=== PATIENT | female | born 1990 | race Caucasian/White ===

== ENCOUNTER → 2020-02-15 19:21 | Outpatient (CLI) | payer BC, SELFPAY ==
[2020-02-15 19:53] LABS: Adenovirus,PCR Not Detected (NotDetected); Bordetella Pertussis Not Detected (NotDetected); Chlamydophila Pneumoniae, PCR Not Detected (NotDetected); Coronavirus 19, PCR Not Detected (NotDetected); Coronavirus 229E Not Detected (NotDetected); Coronavirus NL63 Not Detected (NotDetected); Coronavirus OC43 Not Detected (NotDetected); Coronovirus HKU1,PCR Not Detected (NotDetected); Human Metapneumovirus Not Detected (NotDetected); Influenza A, PCR Not Detected (NotDetected); Influenza AH1, 2009 Not Detected (NotDetected); Influenza AH1, PCR Not Detected (NotDetected); Influenza AH3,PCR Not Detected (NotDetected); Influenza B, PCR Not Detected (NotDetected); Mycoplasma Pneumoniae, PCR Not Detected (NotDetected); Parainfluenza 1, PCR Not Detected (NotDetected); Parainfluenza 2, PCR Not Detected (NotDetected); Parainfluenza 3, PCR Not Detected (NotDetected); Parainfluenza 4, PCR Not Detected (NotDetected); Respiratory Syncytial Virus Not Detected (NotDetected); Rhinovirus/Enterovirus Not Detected (NotDetected)
== END ==
PROVIDERS: PCP Nurse Practitioner; Visit Provider Nurse Practitioner Family
DX: Z03.818 Encounter for observation for suspected exposure to other biological agents ruled out (principal)
CPT/HCPCS: 87581; 87633; 87798

== ENCOUNTER → 2020-07-17 11:02 | Outpatient (CLI) | payer BC, SELFPAY | PROVIDERS: Visit Provider Nurse Practitioner Family | DX: Z20.822 Contact with and (suspected) exposure to COVID-19 (principal) | CPT/HCPCS: U0003 ==

== ENCOUNTER → 2020-11-29 19:53 | Outpatient (CLI) | payer BC, SELFPAY | PROVIDERS: Visit Provider Nurse Practitioner Family | DX: Z20.822 Contact with and (suspected) exposure to COVID-19 (principal); J02.9 Acute pharyngitis, unspecified | CPT/HCPCS: U0003 ==

== ENCOUNTER → 2020-12-19 20:21 | Outpatient (CLI) | payer BC, SELFPAY | PROVIDERS: Visit Provider Nurse Practitioner Family | DX: Z20.822 Contact with and (suspected) exposure to COVID-19 (principal); U07.1 COVID-19 | CPT/HCPCS: C9803; U0003; U0005 ==

== ENCOUNTER 2021-02-23 18:46 | Emergency (ER) | payer OTHER, BC, SELFPAY ==
[2021-02-23 19:15] VITALS: BP 114/74; PULSE 65; RESP 16; TEMP 36.6; O2SAT 98; BMI 23.3
[2021-02-23 19:22] LABS: UTC Strep Screen (Rapid) Positive (Negative)
--- NOTE | 2021-02-23 19:33 | HMH.EDUTC ---
[facility] – [place] Disposition Clinical Impression: Strep throat Disposition: Home, Self-Care Condition on Discharge: Good Instructions: Strep Throat, DI for Strep Throat Additional Instructions: Drink plenty of fluids. Take tylenol or ibuprofen for pain or fever. Take the medications as directed. Follow up with your regular doctor. GO TO THE ER FOR ANY WORSENING SYMPTOMS Throw your tooth brush away and get a new one. Prescriptions: Brompheniramine/Pseudoephed/Dm [Bromfed Dm Cough Syrup] 5 ml PO Q6HP PRN #240 ml PRN Reason: Cough Transmission Status: Pending to [facility] methylPREDNISolone [Medrol] 4 mg PO DIRECTED 6 Days #21 packet Transmission Status: Pending to [facility] Cefdinir [Omnicef 300mg Capsule] 300 mg PO BID #20 cap Transmission Status: Pending to [facility] Referrals: Jamie Vela MD [Primary Care Provider] - Forms: Work/School Release Time of Disposition: 20:16 Medical Decision Making - Medical Records Medical records reviewed: No: I reviewed the patient's medical records. - Hugh Inquiry Pt receiving controlled substance: No Vital Signs: 02/23/21 19:15 02/23/21 19:44 Temperature 97.9 F 97.9 F Temperature Source Oral Pulse Rate 65 Pulse Rate [Left] 65 Respiratory Rate 16 16 Blood Pressure 114/74 Blood Pressure [Right Arm] 114/74 Blood Pressure Mean [Right Arm] 87 02 Sat by Pulse Oximetry 98 - Lab Data Lab results reviewed: Yes: I reviewed the patient's lab results. Lab Results 02/23/21 19:21: Strep Scn Rapid Clinic Positive A [facility] – [place], [place] HPI - General Stated complaint: sore throat, cough, diarrhea, headache Time Seen by Provider: 02/23/21 19:33 Mode of Arrival: Ambulatory Source of Information: Patient Limitations: No Limitations Description of Symptoms (Recalled from Triage Doc. by RN): pt c/o a HERNANDEZ, fever, diarrhea, cough and sore throat. ongoing x1.5 wk HEENT Symptoms (Recalled from RN notes): Yes (HERNANDEZ and sore throat) Resp Symptoms (Recalled from RN notes): Yes (cough) Skin Symptoms (Recalled from RN notes): No MS Symptoms (Recalled from RN notes): No Functional Status (Recalled from RN notes): wnl - History of Present Illness Provider Complaint: She states that she has been feeling bad for the past 1.5 weeks. She c/o sore throat, fever, chills, head ache, and a cough. - Related Data Home Medications Medication Instructions Recorded Confirmed estradiol 0.1 mg/24 hr semiweekly 1 patch TRANSDERMA ONCE each 04/19/19 12/19/20 transdermal patch Previous Rx's Medication Instructions Recorded azithromycin 250 mg tablet 250 mg PO QDAY 5 Days #6 tab 12/19/20 Brompheniramine/Pseudoephed/Dm 5 ml PO Q6HP PRN #240 ml 02/23/21 [Bromfed Dm Cough Syrup] Cefdinir [Omnicef 300mg Capsule] 300 mg PO BID #20 cap 02/23/21 methylPREDNISolone [Medrol] 4 mg PO DIRECTED 6 Days #21 02/23/21 packet Allergies Allergy/AdvReac Type Severity Reaction Status Date / Time acetaminophen [From Percocet] Allergy hives, Verified 12/19/20 17:52 vomiting, shakes amoxicillin Allergy Hives Verified 12/19/20 17:52 meperidine [From Demerol] Allergy hives, Verified 12/19/20 17:52 vomiting, shakes morphine Allergy vomiting, Verified 12/19/20 17:52 head feels on fire naproxen Allergy mild hives Verified 12/19/20 17:52 oxycodone [From Percocet] Allergy hives, Verified 12/19/20 17:52 vomiting, shakes Penicillins Allergy hives Verified 12/19/20 17:52 - Worker's Comp Is this a Worker's Comp case?: No H History - Hepatitis A Screen Drug use history?: No High risk sexual behaviors?: No History of sexually transmitted infection?: No Currently employed?: No Childcare worker?: No Do you have indoor plumbing?: Yes Do you have electricity?: Yes Attestation statement:: This patient has been screened for Hepatitis A risk factors. I have reviewed the patient's p
[2021-02-23 19:44] VITALS: BP 114/74; PULSE 65; RESP 16; TEMP 36.6
== END 2021-02-23 20:33 | disposition home or self-care (01) ==
PROVIDERS: Emergency Provider Nurse Practitioner Family; PCP Family Medicine
DX: J02.0 Streptococcal pharyngitis (principal); F41.9 Anxiety disorder, unspecified; G43.709 Chronic migraine without aura, not intractable, without status migrainosus
CPT/HCPCS: 87880; 99202; G0463

== ENCOUNTER 2022-08-24 13:55 | Emergency (ER) | payer SELFPAY ==
[2022-08-24 13:56] VITALS: BP 132/91; PULSE 78; RESP 18; TEMP 36.8; O2SAT 100; BMI 21.6
--- NOTE | 2022-08-24 14:00 | HMH.EDGENADL ---
Discharge Plan Disposition Patient Disposition: Home, Self-Care Prescriptions Prescriptions: New clindamycin HCl 300 mg capsule 300 mg PO Q8H 7 Days Qty: 21 0RF sulfamethoxazole-trimethoprim [Bactrim DS] 800-160 mg tablet 1 tab PO BID 7 Days Qty: 14 0RF No Action estradiol 0.1 mg/24 hr patch semiweekly 1 patch TRANSDERMA ONCE Label Comments: APPLY 1 PATCH TOPICALLY TWICE A WEEK azithromycin 250 mg tablet 250 mg PO QDAY 5 Days Qty: 6 0RF Rx Instructions: ii tabs day one and i tab days 2-5 methylprednisolone 4 MG tablets,dose pack 4 mg PO DIRECTED 6 Days Qty: 21 0RF nbzxcctsaxqshkr-rhsjndqkj-WL 118 ML syrup 5 ml PO Q6HP PRN (Reason: Cough) Qty: 240 0RF cefdinir 300 MG capsule 300 mg PO BID Qty: 20 0RF Clinical Impressions Clinical Impression: Cat bite Instructions Patient Instructions: DI for Skin Abscess Discharge ED Provider: Jacky Liriano General Adult HPI General Chief complaint: Skin/Abscess/Foreign Body Stated complaint: AO 08/24 Right wrist cat bite Time Seen by Provider: 08/24/22 14:00 History of Present Illness HPI narrative: Patient is a 32-year-old female here after a cat bite to the right wrist. She states that she had a cat this been coming around her house for weeks and has been acting normally she was feeding the cat and tried to pick it up and it bit her on the wrist. She complains of pain over the radial aspect no significant soft tissue swelling no retained foreign bodies that she is aware of. Tetanus not clear in terms of when she had a last she thinks maybe 7 years ago. She is allergic to penicillin. This happened just prior to arrival. She states she is not worried about rabies as this cat has had normal behavior. Animal is also in custody with animal [employer]. Related Data Home Medications Medication Instructions Recorded Confirmed estradiol 0.1 mg/24 hr semiweekly 1 patch transdermal ONCE 04/19/19 12/19/20 transdermal patch Previous Rx's Medication Instructions Recorded azithromycin 250 mg tablet 250 mg PO QDAY sinusitis 5 days #6 12/19/20 tabs fceilpnicvdfxqz-lecxhucjcigknjm-AY 5 ml PO Q6HP PRN Cough #240 mL 02/23/21 2 mg-30 mg-10 mg/5 mL oral syrup cefdinir 300 mg capsule 300 mg PO BID #20 caps 02/23/21 methylprednisolone 4 mg tablets in 4 mg PO DIRECTED 6 days #21 02/23/21 a dose pack packets clindamycin HCl 300 mg capsule 300 mg PO Q8H 7 days #21 caps 08/24/22 sulfamethoxazole 800 1 tab PO BID 7 days #14 tabs 08/24/22 mg-trimethoprim 160 mg tablet (Bactrim DS) Allergies Allergy/AdvReac Type Severity Reaction Status Date / Time acetaminophen [From Percocet] Allergy hives, Verified 12/19/20 17:52 vomiting, shakes amoxicillin Allergy Hives Verified 12/19/20 17:52 meperidine [From Demerol] Allergy hives, Verified 12/19/20 17:52 vomiting, shakes morphine Allergy vomiting, Verified 12/19/20 17:52 head feels on fire naproxen Allergy mild hives Verified 12/19/20 17:52 oxycodone [From Percocet] Allergy hives, Verified 12/19/20 17:52 vomiting, shakes Penicillins Allergy hives Verified 12/19/20 17:52 PFSH PFSH Disclaimer: The information contained in this section may have been updated after the patient was seen, as this information can be updated by other users. Social History Smoking Status: Current every day smoker alcohol intake: current substance use type: denies use current occupational status: employed Travel in the last 8 weeks: None household members: family housing: house ROS Obtained: Yes All systems reviewed & no additional complaints except as documented Physical Exam General General appearance: alert Respiratory Respiratory exam: Present normal lung sounds bilaterally Cardiovascular Cardiovascular exam: Present regular rate Extremities Exam Extremities exam: Present other (Right wrist there is small punctate wo
--- NOTE | 2022-08-24 14:08 | XR_ITS ---
PROCEDURE INFORMATION: Exam: XR Right Wrist Exam date and time: 08/24/2022 2:09 PM Age: 32 years old Clinical indication: Injury or trauma; Other: Cat scratch; Bite; Wrist; Right; Additional info: Cat bite, eval for tooth fb TECHNIQUE: Imaging protocol: Radiologic exam of the right wrist. Views: 3 or more views. COMPARISON: No relevant prior studies available. FINDINGS: Bones/joints: Osseous structures are intact. No fracture or malalignment. Visualized joint surfaces are preserved. Soft tissues: Unremarkable. No radiopaque foreign body detected. IMPRESSION: Negative exam.
--- NOTE | 2022-08-24 14:11 | PC.NURSE ---
rad notified of xray order
--- NOTE | 2022-08-24 14:18 | PC.NURSE ---
tdap given left arm. lot- [id number] Exp- Jun 15 ; teaching sheet given exp 10/27/2020
[2022-08-24 14:31] VITALS: BP 132/91; PULSE 78; RESP 18; TEMP 36.8; O2SAT 100
--- NOTE | 2022-08-24 14:33 | PC.NURSE ---
pt refused pain medication during this visit. pt states she would take Ibuprofen when she left.
== END 2022-08-24 14:34 | disposition home or self-care (01) ==
PROVIDERS: Emergency Provider Student in an Organized Health Care Education/Training Program
DX: S61.551A Open bite of right wrist, initial encounter (principal); F17.200 Nicotine dependence, unspecified, uncomplicated; W55.01XA Bitten by cat, initial encounter
CPT/HCPCS: 73110; 99283; 99284

== ENCOUNTER 2023-03-24 19:40 | Emergency (ER) | payer OTHER, SELFPAY ==
[2023-03-24 19:42] VITALS: BP 122/81; PULSE 73; RESP 18; TEMP 36.9; O2SAT 99; BMI 22.6
--- NOTE | 2023-03-24 20:18 | HMH.EDGENADL ---
Discharge Plan Disposition Patient Disposition: Home, Self-Care Chief Complaint: Upper Respiratory Infection Prescriptions Prescriptions: No Action estradiol 0.1 mg/24 hr patch semiweekly 1 patch TRANSDERMA ONCE Patient Comments: APPLY 1 PATCH TOPICALLY TWICE A WEEK azithromycin 250 mg tablet 250 mg PO QDAY 5 Days Qty: 6 0RF Rx Instructions: ii tabs day one and i tab days 2-5 methylprednisolone 4 MG tablets,dose pack 4 mg PO DIRECTED 6 Days Qty: 21 0RF icppkntdqeihgdj-wotymykbb-ED 118 ML syrup 5 ml PO Q6HP PRN (Reason: Cough) Qty: 240 0RF cefdinir 300 MG capsule 300 mg PO BID Qty: 20 0RF clindamycin HCl 300 mg capsule 300 mg PO Q8H 7 Days Qty: 21 0RF sulfamethoxazole-trimethoprim [Bactrim DS] 800-160 mg tablet 1 tab PO BID 7 Days Qty: 14 0RF Referrals Follow up/Referrals: Jamie Vela MD [Primary Care Provider] - See instructions Activity Restrictions/Add. Instructions Additional Instructions/Restrictions: At this time it was felt you are safe to be discharged home. If new or worsening symptoms please do not hesitate to return the emergency department. If symptoms persist please follow-up with your family doctor as you are able. Clinical Impressions Clinical Impression: Viral respiratory infection Discharge ED Provider: Edgard Stephen General Adult HPI General Chief complaint: Upper Respiratory Infection Stated complaint: fever, sore throat, cough, runny nose, abd pain Time Seen by Provider: 03/24/23 19:47 Mode of Arrival: Ambulatory Source of Information: Patient Limitations: No Limitations Description of Symptoms (Recalled from ER Triage Doc. by RN): Patient reports sore throat, cough, runny nose for approximately 1 week. Patient states she has had a migraine for the last 6 days that has moderately improved today. History of Present Illness HPI narrative: Patient is a 32-year-old female with past medical history of previous migraines who presents emergency department for evaluation of multiple complaints. Patient has had symptoms of cough, sore throat, runny nose for a little over a week. She had a migraine that lasted for 6 days, bitemporal, moderate to severe in intensity which has largely resolved. Adequate p.o. intake. Due to persistent symptoms she presents here for continued evaluation. Related Data Home Medications Medication Instructions Recorded Confirmed estradiol 0.1 mg/24 hr semiweekly 1 patch transdermal ONCE 04/19/19 12/19/20 transdermal patch Previous Rx's Medication Instructions Recorded azithromycin 250 mg tablet 250 mg PO QDAY sinusitis 5 days #6 12/19/20 tabs jjtihvejilfhxnw-matrqjbfufehpqt-PH 5 ml PO Q6HP PRN Cough #240 mL 02/23/21 2 mg-30 mg-10 mg/5 mL oral syrup cefdinir 300 mg capsule 300 mg PO BID #20 caps 02/23/21 methylprednisolone 4 mg tablets in 4 mg PO DIRECTED 6 days #21 02/23/21 a dose pack packets clindamycin HCl 300 mg capsule 300 mg PO Q8H 7 days #21 caps 08/24/22 sulfamethoxazole 800 1 tab PO BID 7 days #14 tabs 08/24/22 mg-trimethoprim 160 mg tablet (Bactrim DS) Allergies Allergy/AdvReac Type Severity Reaction Status Date / Time acetaminophen [From Percocet] Allergy hives, Verified 12/19/20 17:52 vomiting, shakes amoxicillin Allergy Hives Verified 12/19/20 17:52 meperidine [From Demerol] Allergy hives, Verified 12/19/20 17:52 vomiting, shakes morphine Allergy vomiting, Verified 12/19/20 17:52 head feels on fire naproxen Allergy mild hives Verified 12/19/20 17:52 oxycodone [From Percocet] Allergy hives, Verified 12/19/20 17:52 vomiting, shakes Penicillins Allergy hives Verified 12/19/20 17:52 PFSH PFSH Disclaimer: The information contained in this section may have been updated after the patient was seen, as this information can be updated by other users. Social History Smoking Status: Never smoker alcohol intake: current substance use type: denies use current occupational status: employed Travel in the last 8 weeks: None household members: family housing: house ROS Obtained: Yes Systems reviewed as appropriate & no additional complaints except as documented Physical Exam General General appearance: alert and in no apparent distress Head Head exam: atraumatic and normocephalic Eye Eye exam: Present PERRL and EOMI ENT ENT exam: Present mucous membranes moist; Absent normal oropharynx (Erythematous posterior oropharynx without exudate, uvula midline) Neck Neck exam: Present normal inspection Chest Chest inspection: Present normal inspection and symmetric chest wall rise Respiratory Respiratory exam: Present normal lung sounds bilaterally; Absent respiratory distress, wheezes or accessory muscle use Cardiovascular Cardiovascular exam: Present regular rate and normal rhythm Abdominal Exam Abdominal exam: Present soft Extremities Exam Extremities exam: Present normal inspection Neurological Exam Neurological exam: Present alert Psychiatric Psychiatric exam: Present normal affect Skin Skin exam: Present warm and dry Medical Decision Making Hugh Inquiry Pt receiving controlled substance: No Vital Signs: 03/24/23 19:42 Temperature 98.5 F Temperature Source Oral Pulse Rate [Left Radial] 73 Respiratory Rate 18 Blood Pressure [Left Arm] 122/81 Blood Pressure Mean [Left Arm] 94 Blood Pressure Source [Left Arm] Automatic Cuff Blood Pressure Position [Left Arm] Sitting 02 Sat by Pulse Oximetry 99 Oxygen Delivery Method Room Air Lab Data Lab Results 03/24/23 20:20: Group A Strep Rapid Negative Orders (Tests/Meds): ED MEDICATIONS Discontinued Medications Generic Name Dose Route Start Last Admin Trade Name Freq PRN Reason Stop Dose Admin Tetracycl/Hydrocort/Nystatin/Diphen 15 ml 03/24/23 20:21 03/24/23 20:28 Magic Mouthwash 300ml Bottle PO 03/24/23 20:22 15 ml ONCE ONE Administration ORDERS Category Date Time Status Rapid PCR Covid and Flu A/B Stat Lab 03/24/23 20:20 Received Rapid Strep Scrn Group A [Strep Scrn Group A (Rapid)] Lab 03/24/23 20:20 Completed Stat Strep Screen Confirmation Stat Micro 03/24/23 20:20 Received Medical Decision Narrative: In summary patient is a 32-year-old female with past medical history described above who presents emergency department for evaluation of cough, sore throat. Patient is hemodynamically stable nontoxic-appearing upon arrival, afebrile. Differential includes viral respiratory infection, influenza, strep pharyngitis, among others. Workup will be limited to viral swab. Patient is clear to auscultation all lung martel and workup with chest x-ray was considered but will be deferred. Initial workup reviewed by me, strep swab negative. Shared decision-making was had at bedside and patient would not want to take Tamiflu even if influenza test was positive. Given this patient is appropriate for discharge at this time was given return precautions. Critical Care Critical Care Time Critical Care Time: No
[2023-03-24 20:24] LABS: Coronavirus 19, PCR Not Detected (NotDetected); Influenza A, PCR Not Detected (NotDetected); Influenza B, PCR Not Detected (NotDetected)
[2023-03-24] MEDS: MAGIC MOUTHWASH 300ML BOTTLE 15 ML PO (20:28)
[2023-03-24 20:39] LABS: Strep Scrn Group A (Rapid) Negative (Negative)
[2023-03-24 21:04] VITALS: BP 120/80; PULSE 80; RESP 18; TEMP 36.7; O2SAT 98
== END 2023-03-24 21:06 | disposition home or self-care (01) ==
PROVIDERS: Emergency Provider Emergency Medicine; PCP Family Medicine
DX: R50.9 Fever, unspecified (principal); J02.9 Acute pharyngitis, unspecified; G43.909 Migraine, unspecified, not intractable, without status migrainosus; R05.9 Cough, unspecified
CPT/HCPCS: 87430; 87636; 99283